=== PATIENT | male | born 1955 | race African-American/Black ===

== ENCOUNTER 2022-05-28 04:57 | Day surgery (SDC) | payer OTHER ==
[2022-05-10 16:20] VITALS: BMI 22.4
[2022-05-28 14:54] VITALS: TEMP 98
[2022-05-28 15:30] VITALS: PULSE 67
[2022-05-28 15:36] VITALS: BP 137/97; RESP 20
== END 2022-05-28 16:08 | disposition home or self-care (01) ==
LOC: JASU-ENDO 04:57
PROVIDERS: ATTEND Student in an Organized Health Care Education/Training Program
PROC: 0DJD8ZZ Inspection of Lower Intestinal Tract, Via Natural or Artificial Opening Endoscopic (ICD-10-PCS; principal; 2022-05-28 13:30)
DX: K57.10 Diverticulosis of small intestine without perforation or abscess without bleeding (principal)